=== PATIENT | female | born 1990 | race Caucasian/White ===

== ENCOUNTER 2018-11-28 09:41 | Emergency (ER) | payer OTHER ==
[~2018-11-28] VITALS: Ht 160 cm; Wt 65.3 kg
[2018-11-28 09:46] VITALS: BP 125/74; Ht 160 cm; Wt 65.3 kg
== END 2018-11-28 10:34 | disposition home or self-care (01) ==
LOC: ED 09:41
DX: L42 Pityriasis rosea (principal); H10.11 Acute atopic conjunctivitis, right eye